=== PATIENT | female | born 1990 | race Asian ===

== ENCOUNTER 2021-10-28 01:09 | Emergency (ER) | payer OTHER ==
[2021-10-28] MEDS ORDERED: Ondansetron ODT 4 MG TAB ONE (02:18)
[2021-10-28] MEDS ORDERED: Lidocaine Viscous Sol 2% 15 ml UD Cup ONE (02:19)
[2021-10-28] MEDS ORDERED: Mag-Al Plus 1200 MG/1200 MG/120 MG/30 ML UDCUP ONE (02:19)
[2021-10-28 02:30] LABS: #Eosinphils 0.2 10x3/uL (0.0-0.5); #Monocytes 0.6 10x3/uL (0.0-1.1); #Neutrophils 5.2 10x3/uL (1.5-8.4); %Basophils 0.4 % (0.0-2.0); %Eosinophils 2.3 % (0.0-6.0); %Lymphocytes 28.1 % (18.0-47.0); %Monocytes 7.4 % (0.0-10.0); %Neutrophils 61.3 % (40.0-75.0); Hemoglobin 9.9 g/dL (12.0-15.5); Mean Corpuscular Hemoglobin 29.8 pg (27.0-33.0); Mean Corpuscular Volume 87.7 fl (81.6-98.3); Mean Platelet Volume 9.4 fl (7.4-10.4); Platelet Count 256 10x3/uL (150-450); Red Blood Cell (RBC) Count 3.32 10x6/uL (3.90-5.03); White Blood Cell (WBC) Count 8.4 10x3/uL (3.5-10.5)
[2021-10-28 02:38] LABS: ALT (SGPT) 20 U/L (8-55); AST (SGOT) 17 U/L (5-34); Albumin 3.4 g/dL (3.5-5.0); Alkaline Phosphatase 45 U/L (40-110); Anion Gap 14 mmol/L (10-20); BUN (Urea Nitrogen) 8 mg/dL (7.0-18.7); Bilirubin, Total 0.2 mg/dL (0.2-1.2); Calc. Creatinine Clearance 0 mL/min (70-130); Calcium 9.1 mg/dL (7.8-10.44); Carbon Dioxide 21 mmol/L (22-29); Chloride 105 mmol/L (98-107); Estimated GFR 125; Globulin 3.5 g/dL (2.4-3.5); Glucose 87 mg/dL (70-105); Potassium 3.9 mmol/L (3.5-5.1); Protein, Total 6.9 g/dL (6.0-8.3); Sodium 136 mmol/L (136-145)
[2021-10-28 02:40] LABS: Bilirubin Neg (Negative); Blood, Urine Negative (Negative); Clarity Clear (Clear); Glucose, Urine (Dipstick) Normal (Negative); Ketone, Urine Negative (Negative); Leukocyte Negative (Negative); Nitrite Negative (Negative); Protein, Urine (Dipstick) Negative (Neg-Trace); Urobilinogen Normal mg/dL (Less than 2)
== END 2021-10-28 03:08 | disposition home or self-care (01) ==
LOC: CSHERS 01:09
DX: O99.612 Diseases of the digestive system complicating pregnancy, second trimester (principal); K21.9 Gastro-esophageal reflux disease without esophagitis; Z3A.18 18 weeks gestation of pregnancy
CPT/HCPCS: 36415; 80053; 81003; 84702; 85025; 87077; 87086; 93005; Q0162

== ENCOUNTER 2022-01-17 03:26 | Day surgery (SDC) | payer OTHER ==
[2022-01-17 03:57] VITALS: BMI 22.9
[2022-01-17] MEDS ORDERED: hydrALAZINE 20 MG/ML VIAL SLOW IVP PRN (05:50)
[2022-01-17] MEDS ORDERED: Morphine 4 MG/ML VIAL IM SCH (06:00)
[2022-01-17] MEDS ORDERED: Promethazine HCl 25 MG/ML VIAL IM SCH (06:00)
[2022-01-17 06:20] LABS: Bilirubin Neg (Negative); Blood, Urine Negative (Negative); Clarity Clear (Clear); Glucose, Urine (Dipstick) Normal (Negative); Ketone, Urine 15 mg/dL (Negative); Leukocyte 25 (Negative); Nitrite Negative (Negative); Protein, Urine (Dipstick) Negative (Neg-Trace); Specific Gravity, Urine 1.015 (1.005-1.030); Urobilinogen Normal mg/dL (Less than 2)
[2022-01-17 06:47] LABS: Bacteria/HPF Rare-Few HPF (None Seen); RBC/HPF 0-3 HPF (0-3); Transitional Epithelial 0-3 HPF (None Seen)
[2022-01-17 07:10] LABS: Fetal Fibronectin Negative (Negative)
[2022-01-17 07:11] LABS: FFN Internal QC Analyzer PASS (PASS); FFN Internal QC Cassette PASS (PASS)
== END 2022-01-17 07:41 | disposition home or self-care (01) ==
LOC: CSHLD/OP 03:26
PROVIDERS: ATTEND Obstetrics & Gynecology
DX: O99.613 Diseases of the digestive system complicating pregnancy, third trimester (principal); K80.20 Calculus of gallbladder without cholecystitis without obstruction; Z3A.30 30 weeks gestation of pregnancy
CPT/HCPCS: 51701; 76705; 81001; 82731; 87480; 87510; 87660; 96372; 99285; J2270; J2550

== ENCOUNTER 2022-02-28 09:48 | Inpatient (IN) | payer OTHER ==
[~2022-02-28 09:48] MED LIST: NS w/ Oxytocin 30 units 500 ML IV SCH
[2022-02-28] MEDS ORDERED: Penicillin G Potassium 5 MILL.UNITS VIAL ONE (11:32)
[2022-02-28] MEDS ORDERED: Butorphanol Tartrate 1 MG/ML VIAL SLOW IVP PRN (11:37)
[2022-02-28] MEDS ORDERED: Misoprostol 200 MCG TAB PR PRN (11:37)
[2022-02-28] MEDS ORDERED: Ondansetron PF 4 MG/2 ML Vial IVP PRN ×3 (11:37→23:56)
[2022-02-28] MEDS ORDERED: Lidocaine 1% (PF) 30 ML VIAL SC PRN (11:37)
[2022-02-28] MEDS ORDERED: Promethazine HCl 25 MG/ML VIAL IM PRN ×3 (11:37→23:56)
[2022-02-28] MEDS ORDERED: Methylergonovine 0.2 MG/ML VIAL IM PRN (11:37)
[2022-02-28] MEDS ORDERED: Carboprost 250 MCG/ML AMP IM PRN (11:37)
[2022-02-28] MEDS ORDERED: hydrALAZINE 20 MG/ML VIAL SLOW IVP PRN ×2 (11:37→23:56)
[2022-02-28] MEDS ORDERED: Lactated Ringer's 1,000 ML IV SCH (11:45)
[2022-02-28] MEDS ORDERED: Penicillin G Potassium 5 MILL.UNITS in Sodium Chloride 0.9% 100 ML IVPB SCH (11:45)
[2022-02-28] MEDS ORDERED: NS w/ Oxytocin 30 units 500 ML IV SCH ×2 (11:45→12:15)
[2022-02-28 11:47] VITALS: BMI 23.1
[2022-02-28 12:12] LABS: Hemoglobin 11.4 g/dL (12.0-15.5); Mean Corpuscular HGB CONC 35.1 g/dL (32.0-36.0); Mean Corpuscular Hemoglobin 31.8 pg (27.0-33.0); Mean Corpuscular Volume 90.8 fl (81.6-98.3); Mean Platelet Volume 10.6 fl (7.4-10.4); Platelet Count 193 10x3/uL (150-450); RBC Distribution Width 13.6 % (11.5-14.5); Red Blood Cell (RBC) Count 3.58 10x6/uL (3.90-5.03); White Blood Cell (WBC) Count 4.9 10x3/uL (3.5-10.5)
[2022-02-28] MEDS ORDERED: Fentanyl 2 mcg/Bup 0.1% Cadd 100 ML ONE (12:38)
[2022-02-28 12:47] LABS: Syphilis Antibody Nonreactive (Nonreactive); Syphilis Antibody Index 0.04 S/CO (<1.00 Non-Reactive)
[2022-02-28 12:49] LABS: HBSAg Index 0.16 S/CO (0-0.99); Hep B Surf Ag Non-Reactive S/CO (NonReactive)
[2022-02-28] MEDS ORDERED: ePHEDrine Sulfate 50 MG/10 ML VIAL SLOW IVP PRN (13:05)
[2022-02-28] MEDS ORDERED: diphenhydrAMINE 50 MG/ML VIAL IVP PRN (13:05)
[2022-02-28] MEDS ORDERED: Acetaminophen 325 MG TAB PO PRN (13:05)
[2022-02-28] MEDS ORDERED: Naloxone HCl 0.4 mg/ml Vial IVP PRN ×2 (13:05)
[2022-02-28] MEDS ORDERED: Moisturizing Cream (Eucerin) 113 GM JAR TOP PRN (13:05)
[2022-02-28] MEDS ORDERED: Fentanyl 2 mcg/Bupivacaine 0.1% Cassette 100 ML EPIDURAL SCH (13:15)
[2022-02-28] MEDS ORDERED: Communication Order-Pharmacy FS SCH (13:15)
[2022-02-28] MEDS ORDERED: Lactated Ringer's 500 ML IV PRN (13:16)
[2022-02-28] MEDS: Penicillin G 2.5 MILL.units 2.5 MILL.UNITS in Premix Bag 1 BAG IVPB SCH ×2 (15:24→19:03)
[2022-02-28 15:30] LABS: HIV (1/2) Antibody/Antigen Non-Reactive (NonReactive); HIV 1/2 INDEX 0.06 S/CO (<1.00)
[2022-02-28 16:16] LABS: SARS-CoV-2 NAA Rapid Test Not Detected (NotDetected)
[2022-02-28] MEDS ORDERED: Bisacodyl 10 MG SUPP PR PRN (23:56)
[2022-02-28] MEDS ORDERED: Lanolin Ointment 7 GM TUBE TOP PRN (23:56)
[2022-02-28] MEDS ORDERED: Boostrix 0.5 ML (Tdap) VIAL (>/=7 yrs of age) IM ONE (23:56)
[2022-02-28] MEDS ORDERED: Milk Of Magnesia 30 ML UDCUP PO PRN (23:56)
[2022-02-28] MEDS ORDERED: Zolpidem Tartrate 5 MG TAB PO PRN (23:56)
[2022-02-28] MEDS ORDERED: Benzocaine-Menthol 82.5 ML CAN TOP PRN (23:56)
[2022-02-28] MEDS ORDERED: Preparation H Ointment 28 GM TUBE PR PRN (23:56)
[2022-02-28] MEDS ORDERED: diphenhydrAMINE 25 MG CAP PO PRN (23:56)
[2022-02-28] MEDS ORDERED: Varicella virus, LIVE 0.5 ML VIAL SC ONE (23:56)
[2022-02-28] MEDS ORDERED: Measles/Mumps/Rubella 10 MCG/0.5 ML VIAL SC ONE (23:56)
[2022-03-01] MEDS: HYDROcodone/Acetaminophen 5/325 mg Tablet PO PRN ×2 (00:49→08:27)
[2022-03-01] MEDS: Penicillin G 2.5 MILL.units 2.5 MILL.UNITS in Premix Bag 1 BAG IVPB SCH (01:05)
[2022-03-01 04:57] LABS: Hemoglobin 10.7 g/dL (12.0-15.5); Mean Corpuscular HGB CONC 35.3 g/dL (32.0-36.0); Mean Corpuscular Hemoglobin 32.5 pg (27.0-33.0); Mean Corpuscular Volume 92.1 fl (81.6-98.3); Mean Platelet Volume 10.8 fl (7.4-10.4); Platelet Count 167 10x3/uL (150-450); RBC Distribution Width 13.8 % (11.5-14.5); Red Blood Cell (RBC) Count 3.29 10x6/uL (3.90-5.03); White Blood Cell (WBC) Count 10.1 10x3/uL (3.5-10.5)
[2022-03-01] MEDS: Ibuprofen 800 MG TAB PO SCH ×3 (05:58→21:09)
[2022-03-01] MEDS: Ferrous Sulfate 325 MG TAB PO SCH ×2 (08:23→20:24)
[2022-03-01] MEDS: Prenatal Vitamin 1 TAB PO SCH (08:23)
[2022-03-01] MEDS: Docusate 100 MG CAP PO SCH ×2 (08:24→21:09)
[2022-03-02] MEDS: Ibuprofen 800 MG TAB PO SCH (05:19)
[2022-03-02 08:48] VITALS: BP 107/56; TEMP 97.8
[2022-03-02] MEDS: Prenatal Vitamin 1 TAB PO SCH (11:12)
[2022-03-02] MEDS: Ferrous Sulfate 325 MG TAB PO SCH (11:12)
[2022-03-02] MEDS: Docusate 100 MG CAP PO SCH (11:12)
== END 2022-03-02 12:50 | disposition home or self-care (01) | DRG 807 ==
LOC: CSHLD 09:48 → CSHPP 03-01
PROVIDERS: ADMIT Obstetrics & Gynecology; ATTEND Obstetrics & Gynecology
PROC: 10E0XZZ Delivery of Products of Conception, External Approach (ICD-10-PCS; principal; 2022-02-28)
PROC: 0W8NXZZ Division of Female Perineum, External Approach (ICD-10-PCS; 2022-02-28)
DX: O60.14X0 Preterm labor third trimester with preterm delivery third trimester, not applicable or unspecified (principal); Z37.0 Single live birth; Z3A.36 36 weeks gestation of pregnancy; Z20.822 Contact with and (suspected) exposure to COVID-19; O24.420 Gestational diabetes mellitus in childbirth, diet controlled; O99.824 Streptococcus B carrier state complicating childbirth; O76 Abnormality in fetal heart rate and rhythm complicating labor and delivery
CPT/HCPCS: 36415; 51702; 85027; 86780; 86850; 86900; 86901; 87340; 87389; 88307; J2540; J2590; U0002